=== PATIENT | female | born 1990 | race Asian ===

== ENCOUNTER 2016-12-03 13:16 | Inpatient (IN) | payer OTHER ==
[2016-12-02 10:40] VITALS: BMI 31.4
[~2016-12-03] VITALS: Ht 170.2 cm; Wt 90.9 kg
[2016-12-03] VITALS (12 sets, daily range): BP systolic 156–220; BP diastolic 83–130; PULSE 103–119; RESP 20; Ht 170.2 cm; Wt 90.9 kg
[2016-12-03] MEDS ORDERED: ROPIVACAINE 0.5 % 30 ML VIAL ONE (14:48)
[2016-12-03] MEDS ORDERED: POVIDONE IODINE 10% 28.4 GM OINT ONE ×2 (14:48→14:55)
[2016-12-03] MEDS ORDERED: BUPIVACAINE 0.5% (SDV) 30 ML INJ ONE (14:55)
--- NOTE | 2016-12-03 15:19 | QN ---
Documentation Comment Patient's blood pressure was 220/120. This being an elective case that is urgent but not emergent, the case will be cancelled and rescheduled given her high blood pressure and risk associated with operating with the pressure this high. Hospitalist was consulted and will be admitting the patient. MD KATE Kline,FREDY Reid MD Dec 03, 2016 15:19
[2016-12-03] MEDS ORDERED: HYDROCODONE/APAP (5/325) TAB PO PRN (15:30)
[2016-12-03] MEDS ORDERED: ACETAMINOPHEN 325 MG TAB PO PRN (15:30)
--- NOTE | 2016-12-03 16:19 | RADRPT ---
Echocardiogram Report Patient Name: DILLON ALVARADO Gender: Female Date: 1990 Study Date: 03-Dec-2016 Magnetic Observer: Corazon Lewis RDCS Location: [facility] Ref. Physician: URVASHI CURTIS Quality: Adequate Procedures: Transthoracic echocardiogram with complete 2D, M-Mode, and doppler examination. Indications: Accelerated Hypertension. 2D/M Mode Doppler Measurement Value Normal Ranges Measurement Value Normal Ranges LVIDd 2D 4.3 3.5 - 5.6 cm AV Peak Jeovanny 1.5 m/sec LVIDs 2D 2.6 2.1 - 4.1 cm AV Peak PG 9.0 mmHg FS 2D 38.5 % LVOT Peak Jeovanny 1.3 m/sec LVPWd 2D 1.2 0.6 - 1.1 cm LVOT Peak PG 7.0 mmHg IVSd 2D 1.1 0.6 - 1.1 cm MV E Peak Jeovanny 0.7 m/sec IVS/LVPW 2D 1.0 MV A Peak Jeovanny 0.9 m/sec AoR Diam 2D 3.0 2.0 - 3.7 cm MV E/A 0.8 LA/Ao 2D 1 0 - 1 MV Decel Time 148 msec EDV 2D 77.3 cm3 MV E/A 0.8 ESV 2D 18.0 cm3 LA Dimen 2D 2.6 2.3 - 4.0 cm Findings Left Ventricle: Normal left ventricular systolic function. Normal left ventricular cavity size. Mild concentric left ventricular hypertrophy. Ejection fraction is visually estimated at 6065 %. Right Ventricle: Normal right ventricular size. Normal right ventricular systolic function. Left Atrium: The left atrium is normal in size. Right Atrium: The right atrium is normal in size. Mitral Valve: Normal appearance and function of the mitral valve with trace physiologic regurgitation. Aortic Valve: Trace aortic valve regurgitation. Tricuspid Valve: Normal appearance of the tricuspid valve. Unable to obtain RVSP due to minimal presence of tricuspid regurgitation. Pericardium: Normal pericardium with no significant pericardial effusion. Aorta: Normal aortic root. IVC: Normal size and normal respiratory collapse consistent with normal right atrial pressure. Conclusions 1.The left ventricle is normal in size and systolic function. 2.Estimated left ventricular ejection fraction of 60-65%. 3.Mild concentric left ventricular hypertrophy. Electronically Signed By: Donovan Beltrán 03-Dec-2016 16:18:24 -0800 Patient Name: DILLON ALVARADO Study Date: 03-Dec-[id number]
[2016-12-03] MEDS: hydrALAzine 20 MG INJ IV PRN ×2 (16:58→23:59)
[2016-12-03] MEDS: HYDROCHLOROTHIAZIDE 25 MG TAB PO SCH (18:56)
[2016-12-03] MEDS: METOPROLOL 25 MG TAB PO SCH ×2 (18:56→21:00)
--- NOTE | 2016-12-03 21:14 | HP ---
DATE OF ADMISSION: 12/03/2016 INDICATION FOR ADMISSION: High blood pressure. HISTORY OF PRESENTING COMPLAINT: Hank is a 26-year-old obese female with no significant past medi iveth history who was snowboarding with her friends over the holidays when she fractured her right ank le. She was brought in today for an elective repair by Dr. Onofre Goodrich, and in the preop holding ar ea, she was found to have severely elevated blood pressures that were consistently with systolics in the 200s, even as high as 220s, and diastolics in the low 100s, as high as 113. Upon further quest ioning, the patient remembers that she was told one time at school that her blood pressure was mildl y elevated at 140/90, but she was just encouraged to maintain a good diet and exercise and lose some weight. She was never put on medication. She does not see a primary care physician routinely, and that was just at a screening exercise in her school. She works as a student. She does not smoke o r drink alcohol, but both her parents and an older sister in her 40s have high blood pressure. Giovani bardales is no family history of diabetes, however, and she does not know of any significant history of cor onary artery disease. She denies headache. She denies vision changes. She denies extremity weakne ss and numbness except for the pain in her right ankle. The pain is also just minimal and manageabl e, and she does not desire pain medication at this time. She does not think it's the pain causing h er elevated blood pressure. REVIEW OF SYSTEMS: A 12-point review of systems was done. Pertinent findings are as noted in HPI. PAST MEDICAL HISTORY: None. SURGICAL HISTORY: The patient denies. ALLERGIES: SHE HAS NO KNOWN DRUG ALLERGIES. SOCIAL HISTORY: Denies tobacco, alcohol or illicit drug use. FAMILY HISTORY: See HPI. HOME MEDICATIONS: None. PHYSICAL EXAMINATION: VITAL SIGNS: Reviewed and unremarkable except for blood pressures in the 200s systolic and 100s inez stolic and heart rates as high as 108. GENERAL: Positive for obesity. The patient was alert and oriented, in no distress. HEENT: Head was normocephalic. Pupils were equal, round and reactive. Mucous membranes were moist . ____ pharynx was clear of erythema and exudate. NECK: Supple without adenopathy or JVD. CHEST: Clear to auscultation. CARDIOVASCULAR: S1 and S2 without added sounds or murmurs. ABDOMEN: Soft, nondistended, nontender with normoactive bowel sounds. She had no costovertebral ang le tenderness. LOWER EXTREMITIES: Negative for edema on the left side. However, the right side was splinted and h eavily bandaged all the way from the foot to the mid leg. NEUROLOGIC: She had no gross focal neurologic deficits. SKIN: Devoid of rash or jaundice. PSYCHIATRIC: She calm, cooperative with exam. LABORATORY VALUES: There are no lab studies so far on this admission. I will be ordering a few, wh ich I will review. IMAGING: Again, no imaging studies so far. ASSESSMENT: 1. ____ hypertension, likely chronic hypertension which is likely essential hypertension. 2. Obesity. 3. Rule out secondary causes of high blood pressure. PLAN OF CARE AT THIS TIME: The patient will be admitted to the telemetry floor for close monitoring and blood pressure control. Workup will include 2D echocardiogram, renal artery Doppler ultrasound and thyroid hormone screening. She will be commenced on oral antihypertensives and a low-cholester ol, low-fat diet, also a low-calorie diet while in-house. I have spoken with the orthopedic surgeon Dr. Goodrich, and he has rescheduled her surgery to Thursday. Once the patient has better blood pressu re control, she will be discharged on oral antihypertensives, and she will be re-present again on Mo for outpatient ankle repair. In the interim, we will provide pain medicine as needed, anti-mau tics as needed and continue all supportive care. Plan of care has been discussed with the patient i n detail, questions have been answered. Evaluation time has been about 35 minutes. Dictated By: URVASHI CURTIS MD BA/NTS Conf#: [id number] DID#: [id number]
[2016-12-04] VITALS (8 sets, daily range): BP systolic 138–162; BP diastolic 76–98; PULSE 83–117; RESP 16–20
[2016-12-04] MEDS: hydrALAzine 20 MG INJ IV PRN (06:10)
[2016-12-04] MEDS ORDERED: INFLUENZA VIRUS VACCINE 0.5 ML SYG IM* ONE (08:00)
--- NOTE | 2016-12-04 08:52 | PN ---
Date/Time of Note Date/Time of Note DATE: 12/04/16 TIME: 08:45 Assessment/Plan VTE Prophylaxis VTE Prophylaxis Intervention: SCD's Lines/Catheters IV Catheter Type (from Nrsg): Saline Lock Assessment/Plan Assessment/Plan 26 yo F with Accelerated HTN: improving Obesity R ankle fracture PLAN: f/u labs Continue current antihypertensives Patient missed PM dose of BB yesterday Echo consistent with hypertensive heart disease. pain control/ antiemetics/ supportive care Subjective 24 Hr Interval Summary Free Text/Dictation Patient's BP is much improved Still tachycardic Exam/Review of Systems Vital Signs Vitals Vital Signs Date Time Temp Pulse Resp B/P Pulse Ox O2 Delivery O2 Flow Rate FiO2 12/04/16 08:32 117 12/04/16 04:11 97.8 20 162/98 98 12/03/16 13:22 Room Air Intake and Output 12/03/16 12/03/16 12/04/16 15:00 23:00 07:00 Intake Total 800 ml Balance 800 ml Exam Constitutional: alert, obese, oriented Head: atraumatic, normocephalic Eyes: PERRL ENMT: mucosa pink and moist Neck: non-tender, supple Respiratory: clear to auscultation, normal air movement Cardiovascular: nl pulses, No murmurs/extra sounds, No regular rate and rhythm Gastrointestinal: bowel sounds, non-tender, soft Musculoskeletal: other (R foot encased in spint and heavily bandage up to mid leg) Neurological: nl mental status, nl speech, nl strength Skin: No rash or lesions Medications Medications Current Medications Metoprolol Tartrate (Lopressor) 25 mg BID PO Last administered on 12/03/16 18: 56; Admin Dose 25 MG; Start 12/03/16 at 15:30 Hydrochlorothiazide (Hydrochlorothiazide) 25 mg DAILY PO Last administered on 18:56; Admin Dose 25 MG; Start 12/03/16 at 15:30 Hydralazine HCl (Apresoline) 10 mg Q6H PRN IV sbp>160mmhg Last administered on 12/04/16 06:10; Admin Dose 10 MG; Start 12/03/16 at 15:30 Acetaminophen (Tylenol Tab) 650 mg Q6H PRN PO PAIN AND OR ELEVATED TEMP; Start 12/03/16 at 15:30 Acetaminophen/ Hydrocodone Bitart ([place] (5/325)) 1 tab Q6H PRN PO pain; Start 12/03/16 at 15:30 Procedures Procedures Echocardiogram Report Patient Name: DILLON ALVARADO Gender: Female Date: 1990 Study Date: 03-Dec-2016 Lockstitch Cup Setter: Corazon Lewis RDCS Location: [facility] Ref. Physician: URVASHI CURTIS Quality: Adequate Procedures: Transthoracic echocardiogram with complete 2D, M-Mode, and doppler examination. Indications: Accelerated Hypertension. 2D/M Mode Doppler Measurement Value Normal Ranges Measurement Value Normal Ranges LVIDd 2D 4.3 3.5 - 5.6 cm AV Peak Jeovanny 1.5 m/sec LVIDs 2D 2.6 2.1 - 4.1 cm AV Peak PG 9.0 mmHg FS 2D 38.5 % LVOT Peak Jeovanny 1.3 m/sec LVPWd 2D 1.2 0.6 - 1.1 cm LVOT Peak PG 7.0 mmHg IVSd 2D 1.1 0.6 - 1.1 cm MV E Peak Jeovanny 0.7 m/sec IVS/LVPW 2D 1.0 MV A Peak Jeovanny 0.9 m/sec AoR Diam 2D 3.0 2.0 - 3.7 cm MV E/A 0.8 LA/Ao 2D 1 0 - 1 MV Decel Time 148 msec EDV 2D 77.3 cm3 MV E/A 0.8 ESV 2D 18.0 cm3 LA Dimen 2D 2.6 2.3 - 4.0 cm Findings Left Ventricle: Normal left ventricular systolic function. Normal left ventricular cavity size. Mild concentric left ventricular hypertrophy. Ejection fraction is visually estimated at 6065 %. Right Ventricle: Normal right ventricular size. Normal right ventricular systolic function. Left Atrium: The left atrium is normal in size. Right Atrium: The right atrium is normal in size. Mitral Valve: Normal appearance and function of the mitral valve with trace physiologic regurgitation. Aortic Valve: Trace aortic valve regurgitation. Tricuspid Valve: Normal appearance of the tricuspid valve. Unable to obtain RVSP due to minimal presence of tricuspid regurgitation. Pericardium: Normal pericardium with no significant pericardial effusion. Aorta: Normal aortic root. IVC: Normal size and normal respiratory collapse consistent with normal right atrial pressure. Conclusions 1. The left ventricle is normal in size and systolic function. 2. Estimated left ventricular ejection fraction of 60-65%. 3. Mild concentric left ventricular hypertrophy. Electronically Signed By: Donovan Beltrán 03-Dec-2016 16:18:24 -0800 URVASHI CURTIS Dec 04, 2016 08:52
[2016-12-04] MEDS ORDERED: METOPROLOL 25 MG TAB PO SCH (09:00)
[2016-12-04] MEDS: HYDROCHLOROTHIAZIDE 25 MG TAB PO SCH (09:48)
[2016-12-04 10:04] LABS: ALBUMIN 4.1 g/dl (3.3-4.9)
[2016-12-04 10:05] LABS: POTASSIUM 3.4 mmol/L (3.5-5.1)
[2016-12-04 10:06] LABS: BASOPHILS % 0.2 % (0.0-2.0); EOSINOPHILS # 0.1 10^3/ul (0.0-0.5); HEMATOCRIT 41.2 % (37.0-47.0); LYMPHOCYTES # 1.4 10^3/ul (0.8-2.9); LYMPHOCYTES % 13.4 % (15.0-51.0); MEAN CORPUSCULAR HEMOGLOBIN 26.7 pg (29.0-33.0); MEAN CORPUSCULAR HGB CONC 33.9 g/dl (32.0-37.0); MEAN CORPUSCULAR VOLUME 78.9 fl (82.0-101.0); MEAN PLATELET VOLUME 8.5 fl (7.4-10.4); MONOCYTE # 0.7 10^3/ul (0.3-0.9); MONOCYTES % 6.3 % (0.0-11.0); NEUTROPHIL # 8.2 10^3/ul (1.6-7.5); NEUTROPHILS % 79.1 % (39.0-77.0); PLATELET COUNT 336 10^3/UL (140-440); RED BLOOD COUNT 5.23 10^6/ul (4.20-5.40); RED CELL DISTRIBUTION WIDTH 14.4 % (11.5-14.5); UNCORRECTED WBC 10.4 10^3/ul (4.8-10.8); WHITE BLOOD COUNT 10.4 10^3/ul (4.8-10.8)
[2016-12-04 10:07] LABS: BILIRUBIN,INDIRECT 0.6 mg/dl (0-1.1); BILIRUBIN,TOTAL 0.6 mg/dl (0.2-1.3); CREATININE 0.51 mg/dl (0.44-1.00); TOTAL PROTEIN 7.5 g/dl (6.1-8.1)
[2016-12-04 10:08] LABS: CALCIUM 9.4 mg/dl (8.4-10.2); CHOL/HDL RATIO 4.5 RATIO; MAGNESIUM 1.6 mg/dl (1.7-2.5)
[2016-12-04 10:11] LABS: CONDITION 1; LH ANALYZER COMMENTS 1
[2016-12-04] MEDS ORDERED: HYD25 PO (13:49)
[2016-12-04] MEDS ORDERED: METO-448 PO ×2 (13:49→15:21)
--- NOTE | 2016-12-04 13:51 | PDOCDIS ---
Discharge Instructions DIAGNOSIS Discharge Diagnosis: Hypertension CONDITION Patient Condition: Stable HOME CARE INSTRUCTIONS: Diet Instructions: Reduced SodiumSpecial Diet: low fat low cholesterol ACTIVITY: Activity Restrictions: Slowly Increase Activity Rest between Activity FOLLOW UP/APPOINTMENTS Appointments Followup with your primary doctor within the next 1-2 weeks. If you don't have one please let someone know, we can give you resources that may help you pick one. You may also call your insurance company to assign one to you. Review your medication list with your nurse before leaving and if you need new prescriptions please let your nurse know. I may have made changes to your home medications or given you new prescriptions , please let your primary doctor know as well. Stay compliant with your medications and report any side effects to your PCP or pharmacist. Return to the ER if you have any concerns and cannot reach your doctors or call your insurance company, they usually have a nurse that can help you. also F/u for surgery as per URVASHI Vargas Dec 04, 2016 13:51
--- NOTE | 2016-12-04 13:55 | RADRPT ---
PROCEDURE: US Renal arteries. CLINICAL INDICATION: Hypertension. TECHNIQUE: Renal artery Doppler ultrasound was performed with newby scale, color flow, and Doppler interrogation of the renal arteries and kidneys. COMPARISON: None available FINDINGS: The right kidney measures 11.6 cm. The left kidney measures 12.4 cm. There is no renal mass, hydrone phrosis, or calculus. Renal echogenicity is normal. LOCATIONRIGHT (cm/sec)LEFT (cm/sec) Aorta [id number] Prox main renal artery PSV66 91 Resistive Index0.66 0.75 Mid main renal artery PSV64 63 Resistive Index0.68 0.63 Dist main renal artery PSV55 61 Resistive Index0.63 0.68 Inferior segmental artery PSV33 36 Resistive Index0.62 0.55 Renal Artery-Aorta Ratio0.5 0.7 IMPRESSION: 1. Unremarkable renal artery Doppler ultrasound. 2. No evidence for renal artery stenosis. RPTAT: QQ .Shaun Elias MD, MD Date Time Electronically viewed and signed by .Shaun Elias MD, on 12/04/2016 13:55 .R/
[2016-12-04] MEDS ORDERED: POTASSIUM CHLORIDE (SR) 20 MEQ TAB PO ONE (14:00)
[2016-12-04] MEDS ORDERED: MAGNESIUM SULFATE 2 GM/50 ML 50 ML IVPB ONE (14:00)
[2016-12-04 14:25] LABS: THYROID STIMULATING HORMONE 1.63 MIU/L (0.465-4.680)
[2016-12-04] MEDS ORDERED: LISI20TA11 PO (15:21)
[2016-12-04] MEDS ORDERED: METF-382 PO (15:21)
[2016-12-04] MEDS ORDERED: LANC1COM MC (15:22)
[2016-12-04] MEDS ORDERED: BLOO-53 MC (15:22)
[2016-12-04] MEDS ORDERED: SYRI-1417 MC (15:22)
[2016-12-04] MEDS ORDERED: LANT3I SC (15:22)
[2016-12-04] MEDS ORDERED: GLUCAGON 1 MG INJ IM PRN (15:30)
[2016-12-04] MEDS ORDERED: GLUCOSE GEL 15 GRAM TUBE PO PRN ×2 (15:30)
[2016-12-04] MEDS ORDERED: INSULIN GLARGINE [LANtus] 3 ML PEN SC SCH (15:30)
[2016-12-04] MEDS ORDERED: DEXTROSE 50% 50 ML SYRINGE IV PRN ×2 (15:30)
[2016-12-04] MEDS ORDERED: GLUCOSE GEL 15 GRAM TUBE BUCCAL PRN (15:30)
--- NOTE | 2016-12-04 17:18 | DS ---
DATE OF ADMISSION: 12/03/2016 DATE OF DISCHARGE: 12/04/2016 INDICATION FOR ADMISSION: High blood pressure. ADMISSION DIAGNOSES: 1. Accelerated hypertension, likely chronic hypertension which is likely essential hypertension. 2. Obesity. 3. Rule out secondary causes of high blood pressure. 4. Right ankle fracture. CONSULTS ON THE CASE: The patient was seen by visual educator. INTERVENTIONS: 1. A 2D echocardiogram 12/03/2016 that showed EF of 60% to 65%, mild concentric left ventricular hy pertrophy. 2. Renal arterial Dopplers that were negative for renal artery stenosis. 3. Screening labs that came back with hemoglobin A1c of 10.2, normal cholesterol profile, normal TS H, but hypokalemia with potassium of 3.4 HOSPITALIZATION COURSE: Full details are available in the chart for review. In summary, this very pleasant 26-year-old female was out snowboarding with her friend when she sustained an ankle fractur e. She was brought in by Dr. Onofre Goodrich for an elective repair and same day surgery, and sabrina figueroa was found to have severely elevated blood pressures in the 200s. She was admitted for further management and blood pressure control and optimization prior to her surgery. So far she has done ve ry well. Her blood pressures are well controlled; however, screening labs indicate that the patient is a type 2 diabetic with a hemoglobin A1c of 10.2 and a fasting glucose in the 200s. She will be seen by the visual educator and set up with an outpatient primary care physician, educated on how to check her blood glucose levels and if these can all be completed today, she will be discharged ho nh in stable condition. If not, however, she will be discharged home when all of this is completed. At this time, her condition is stable. ACTIVITIES: As tolerated. DIAGNOSES: 1. Accelerated hypertension with improved control. 2. Newly diagnosed type 2 diabetes mellitus without diabetic ketoacidosis. 3. Obesity. 4. Right ankle fracture. 5. Hypokalemia, replaced. 6. Hypomagnesemia, replaced. DISPOSITION: To home. FOLLOWUP: We will transfer the followup with outpatient doctor, Dr. Linwood Garcia, for continued inez betic and blood pressure management. DISCHARGE MEDICATIONS: 1. Metoprolol 25 p.o. b.i.d. 2. Hydrochlorothiazide 25 p.o. daily. 3. Lisinopril 20 mg p.o. daily. 4. Aspirin 81 mg p.o. daily. 5. Lantus 15 units subcutaneously daily. 6. Metformin 500 mg p.o. b.i.d. Dictated By: URVASHI CURTIS MD, BA/CHAPIS Conf#: [id number] DID#: [id number]
[2016-12-04] MEDS ORDERED: metFORMIN 500 MG TAB PO SCH (18:05)
[2016-12-05] MEDS ORDERED: LISINOPRIL 20 MG TAB PO SCH (09:00)
== END 2016-12-04 19:08 | disposition home or self-care (01) | DRG 305 ==
LOC: SDS 13:16 → MS4 18:32 → UNDOFXSDCACCOM 18:32
PROVIDERS: ADMIT Family Medicine; ATTEND Orthopaedic Surgery
DX: I10 Essential (primary) hypertension (principal); E83.42 Hypomagnesemia; E66.9 Obesity, unspecified; Z68.31 Body mass index [BMI] 31.0-31.9, adult; E87.6 Hypokalemia; E11.9 Type 2 diabetes mellitus without complications; S82.891A Other fracture of right lower leg, initial encounter for closed fracture; X58.XXXA Exposure to other specified factors, initial encounter; Y93.23 Activity, snow (alpine) (downhill) skiing, snowboarding, sledding, tobogganing and snow tubing; Y92.828 Other wilderness area as the place of occurrence of the external cause
CPT/HCPCS: 80048; 80061; 80076; 82962; 83036; 83735; 84443; 84703; 85025; 90686; 93005; 93306; 93976; J0360; J1815; J2795; J3475

== ENCOUNTER 2016-12-08 05:32 | Day surgery (SDC) | payer OTHER ==
[2016-12-08] VITALS (13 sets, daily range): BP systolic 105–142; BP diastolic 62–91; PULSE 52–105; RESP 16–27; Ht 170.2 cm; Wt 91.0 kg
[~2016-12-08] VITALS: Ht 170.2 cm; Wt 91.0 kg
[~2016-12-08 05:32] MED LIST: BLOO-53 MC; HYD25 PO; LANC1COM MC; LANT3I SC; LISI20TA11 PO; METF-382 PO; METO-448 PO; SYRI-1417 MC
--- NOTE | 2016-12-08 06:49 | HPN ---
Date/Time of Note Date/Time of Note DATE: 12/08/16 TIME: 06:48 Interval H&P Admission Note Pt. seen H&P reviewed: No system changes FREDY LOVE MD Dec 08, 2016 06:49
[2016-12-08] MEDS ORDERED: MIDAZOLAM 1 MG/ML 2 ML INJ ONE ×2 (06:56)
[2016-12-08] MEDS ORDERED: FENTAnyl 50 MCG/ML VIAL ONE (06:57)
[2016-12-08] MEDS ORDERED: ROPIVACAINE 0.5 % 30 ML VIAL ONE ×2 (06:57→08:32)
[2016-12-08] MEDS ORDERED: LIDOCAINE 2% (SDV) 5 ML INJ ONE (07:00)
[2016-12-08] MEDS ORDERED: PROPOFOL 200 MG INJ ONE (07:00)
[2016-12-08] MEDS ORDERED: POLYMYXIN/BACITRACIN 1L IRRIG ONE (07:04)
[2016-12-08] MEDS ORDERED: POVIDONE IODINE 10% 28.4 GM OINT ONE (07:04)
[2016-12-08] MEDS ORDERED: BUPIVACAINE 0.5% (SDV) 30 ML INJ ONE (07:04)
[2016-12-08] MEDS ORDERED: LABETALOL HCL 20MG INJ ONE (08:58)
[2016-12-08] MEDS ORDERED: MEPERIDINE 100 MG INJ ONE (09:00)
[2016-12-08] MEDS ORDERED: DEXAMETHASONE 4 MG/ML 1 ML INJ ONE (09:09)
[2016-12-08] MEDS ORDERED: ONDANSETRON 4 MG INJ IV PRN ×2 (10:30→19:00)
[2016-12-08] MEDS ORDERED: FENTAnyl 50 MCG/ML VIAL IV PRN ×3 (10:30)
[2016-12-08] MEDS ORDERED: hydrALAzine 20 MG INJ IV PRN (10:30)
[2016-12-08] MEDS ORDERED: LABETALOL HCL 20MG INJ IV PRN (10:30)
[2016-12-08] MEDS ORDERED: HYDROmorphONE (0.2 MG/ML) 10ML SYG IV PRN ×3 (10:30)
[2016-12-08] MEDS ORDERED: NALOXONE (0.4 MG/ML) INJ IV PRN (10:30)
[2016-12-08] MEDS ORDERED: OXYCODONE/ACETAMINOPHEN (5/325) TAB PO PRN ×3 (10:30→19:00)
[2016-12-08] MEDS ORDERED: MEPERIDINE 25 MG INJ IV PRN (10:30)
[2016-12-08] MEDS ORDERED: ONDANSETRON 4 MG INJ ONE (11:24)
[2016-12-08] MEDS ORDERED: GLYCOPYRROLATE 0.4 MG INJ ONE (11:29)
[2016-12-08] MEDS ORDERED: NEOSTIGMINE 3 MG/3 ML SYRINGE ONE (11:29)
--- NOTE | 2016-12-08 11:49 | OPPN ---
Date/Time of Note Date/Time of Note DATE: 12/08/16 TIME: 11:46 Operative/Procedure Note Pre-Operative Diagnosis Right ankle distal fibula fracture Post-Operative Diagnosis Right ankle distal fibula fracture Right ankle syndesmotic disruption Right ankle loose body Right ankle medial talar dome OCD Right ankle posterolateral tibial plafond OCD Procedure Right ankle arthroscopy with extensive debridement RIght ankle arthroscopy with loose body removal Right ankle distal fibula ORIF Right ankle syndesmotic ORIF Surgeon: FREDY LOVE MD Deputy County Counsel: LASHAWN CHAUDHARY MD Anesthesiologist: BOBBY PERSON Implants/Grafts 1 arthrex distal fibula plate with screws 1 3.5 fully threaded 50 mm screw Estimated blood loss: minimal Drains: Not applicable Specimens: Not Applicable Complications: None Anesthesia type: regional FREDY LOVE MD Dec 08, 2016 11:49
--- NOTE | 2016-12-08 11:57 | RADRPT ---
PROCEDURE: Right ankle x-ray series CLINICAL INDICATION: Right ankle ORIF. TECHNIQUE: 12 x-ray images were obtained intraoperatively during a right ankle ORIF procedure. COMPARISON: None available FINDINGS: 12 x-ray images were obtained intraoperatively for localization during a right ankle ORIF procedure. 91.2 seconds of fluoroscopy time was used during the procedure. IMPRESSION: 12 images and 91 2 seconds of fluoroscopy time used during the ORIF procedure .Perry Chacko MD, Date Time Electronically viewed and signed by .Perry Chacko MD, MD on 12/08/2016 11:57 .B/
[2016-12-08] MEDS ORDERED: morphine 2 MG INJ IV PRN (19:00)
[2016-12-08] MEDS ORDERED: morphine 10 MG INJ IV PRN (19:00)
--- NOTE | 2016-12-08 19:17 | OPR ---
Date/Time of Note Date/Time of Note DATE: 12/08/16 TIME: 19:08 Operative Report Procedure Date: Dec 08, 2016 Preoperative Diagnosis Right ankle distal fibula fracture Postoperative Diagnosis Right ankle distal fibula fracture Right ankle syndesmotic disruption Right ankle loose body Right ankle medial talar dome OCD Right ankle posterolateral tibial plafond OCD Operation Performed 1.Right ankle arthroscopy with extensive debridement 2. Right ankle arthroscopy with loose body removal 3. Right ankle distal fibula ORIF 4. Right ankle syndesmotic ORIF Surgeon: FREDY LOVE MD Survey Supervisor: LASHAWN CHAUDHARY MD Anesthesia: general, other (regional block) Tourniquet Time: 100 min Estimated Blood Loss: minimal Complications: None Pt Condition Post Procedure: stable Disposition: PACU Indications Patient is a 26-year-old female sustained a right ankle fracture dislocation and was initially scheduled for surgery approximately 1 week ago however on presentation to the preoperative area patient wasn't hypertensive crisis with her blood pressure at 220/160. At that time patient was admitted to the hospital and found to have diabetes type 2 with a hemoglobin A1c at 10.5 and hypertension. She was started on medications and pressure was well controlled and patient was cleared for surgery. Procedure Description Patient's correct extremity was marked in the preoperative holding area and confirmed with the patient via both consent and by patient. Patient was then brought back into the operative theater, placed supine on operative table and given preoperative anesthesia and preoperative antibiotics. Tourniquet was placed on the operative examination thigh non-sterilely. Patient was then given preoperative antibiotics and then the operative thigh was secured onto a thigh arguelles flexed and all areas were well padded. Superficial peroneal nerve branches were marked appropriately. The ankle was then prepped and draped in normal sterile fashion. Time-out was taken. All parties were in agreement that this was correct patient and extremity and procedure. A soft-tissue distraction strap was applied across the ankle and a soft tissue distraction was then placed across ankle at approximately 25 pounds of force. Attention was initially turned to the ankle joint. Using a typical anteromedial and anterolateral portal with care to avoid any injury to the neurovascular structures. A 21-point ankle exam was completed revealing significant extensive synovitis and blood coagulation in the ankle with significant synovitis specifically seen in the anterolateral and anterior medial ankle gutter and a hemorrhagic nodule seen in the lateral gutter as well. Significant scar tissue was thoroughly debrided. A loose body measuring possibly 1 cm was seen in the soft tissue and removed. And a osteochondral lesion was seen in the posterior lateral tibial plafond and there was some loss of cartilage seen over the medial talar dome. All significant scar tissue and hematoma was thoroughly debrided. The ankle was thoroughly irrigated with saline. All wounds were closed with 4- 0 nylon in vertical mattress fashion and the attention was then turned to the medial aspect of the ankle. Gloves were changed and patient was reprepped and draped and then Esmarch was brought up and tourniquet was brought up to 250 mmHg. Incision was made over the distal fibula and this was taken down to the fracture site. The fracture site was thoroughly irrigated and hematoma was removed. The fracture was then reduced and held in position and shown we will reduced in both AP lateral and oblique view. A 2.7 lag screw was placed from posterior to anterior at the fracture site to obtain interfragmentary compression. A Arthrex distal fibular locking plate was then placed over the fracture and fixed proximally and distally. Proximally this with cortical screws and distally with locking screws at this time it a manual x-rays introitus was performed and there was slight gapping is seen at the medial clear space. Thus a 3.5 fully threaded cortical screw was placed across all 4 cortices at the syndesmosis. The fracture was shown to be again it well reduced and out to excellent length, alignment and rotation. The wound was then irrigated thoroughly with normal saline and then the remainder of the wound was closed with 2-0 Vicryl followed by 3-0 Monocryl followed by 4-0 nylon in a vertical mattress fashion. A compression dressing was applied with Xeroform, Betadine ointment 4 x 4's and ABDs and the patient was placed into a well-padded short leg splint with 5 ABDs in neutral position. Patient tolerated procedure well and taken to recovery room in stable condition. At the end of the procedure, all sponge and needle counts were correct. Asst. note: An orthopedic surgeon was needed as an laboratory chemical assistant for this case due to the complexity of this case. The laboratory chemical assistant performed retraction and alignment of the fracture and assisted in reduction with ankle was being held into proper position while drilling was performed. Also and this was necessary to aid in fixation of the fracture and for reduction. Without a orthopedic surgeon who is an expert in surgery assisting in this case the case to be a lot longer and more complex. Thus should be compensated accordingly FREDY LOVE MD Dec 08, 2016 19:17
== END 2016-12-08 14:20 | disposition home or self-care (01) ==
LOC: SDS 05:32
PROVIDERS: ATTEND Orthopaedic Surgery
DX: S82.61XA Displaced fracture of lateral malleolus of right fibula, initial encounter for closed fracture (principal); S93.491A Sprain of other ligament of right ankle, initial encounter; X58.XXXA Exposure to other specified factors, initial encounter; I10 Essential (primary) hypertension; E11.9 Type 2 diabetes mellitus without complications; E66.01 Morbid (severe) obesity due to excess calories; Z68.31 Body mass index [BMI] 31.0-31.9, adult; M24.071 Loose body in right ankle; M93.971 Osteochondropathy, unspecified, right ankle and foot
CPT/HCPCS: 27792; 29898; 73610; 82962; 84703; C1713; J1100; J2175; J2250; J2405; J2710; J2795; J3010; Z7512; Z7610